=== PATIENT | male | born 1965 | race Caucasian/White ===

== ENCOUNTER 2016-12-08 16:33 | Emergency (ER) | payer OTHER, MEDICAID ==
[~2016-12-08] VITALS: Ht 177.8 cm; Wt 75.0 kg
[2016-12-08 17:33] LABS: CLARITY URINE CLEAR (CLEAR); COLOR URINE YELLOW (YELLOW); GLUCOSE URINE NEGATIVE (NEGATIVE); HEMATOCRIT. 38.5 % (42.0-52.0); HEMOGLOBIN. 12.6 g/dL (14.0-18.0); KETONES URINE NEGATIVE (NEGATIVE); LEUKOCYTE ESTERASE URINE NEGATIVE (NEGATIVE); MEAN CORPUSCULAR HEMOGLOBIN 26.2 pg (28.0-32.0); MEAN CORPUSCULAR VOLUME 80.2 fL (80.0-94.0); MEAN PLATELET VOLUME 8.3 fl (7.4-10.4); NITRITE URINE NEGATIVE (NEGATIVE); OCCULT BLOOD URINE NEGATIVE (NEGATIVE); PLATELET 196 x1000/uL (130-400); PROTEIN URINE NEGATIVE (NEGATIVE); RED CELL DISTRIBUTION WIDTH 16.2 % (11.6-14.6); SPECIFIC GRAVITY URINE 1.012 (1.005-1.030); UROBILINOGEN URINE 0.2 E.U./dL (0.2-1.0)
[2016-12-08 17:40] LABS: CARBON DIOXIDE 29 mEq/L (21-32); CHLORIDE 103 mEq/L (98-107)
[2016-12-08 17:42] LABS: INR 1.1; PROTHROMBIN TIME 11.4 sec
[2016-12-08 17:47] LABS: ETHANOL BLOOD < 10 mg/dL; TROPONIN I 0.02 ng/mL (0.00-0.04)
[2016-12-08 17:50] LABS: *AMPHETAMINES SCREEN URINE NEGATIVE (NEGATIVE); *BARBITURATES SCREEN URINE NEGATIVE (NEGATIVE); *BENZODIAZEPINES SCREEN URINE NEGATIVE (NEGATIVE); *COCAINE SCREEN URINE NEGATIVE (NEGATIVE); CANNABINOID URINE SCREEN NEGATIVE (NEGATIVE); METHADONE URINE SCREEN NEGATIVE (NEGATIVE); OPIATES URINE SCREEN NEGATIVE (NEGATIVE); PHENCYCLIDINE URINE SCREEN NEGATIVE (NEGATIVE)
[2016-12-08 17:53] LABS: PLATELET ESTIMATE NORMAL
[2016-12-08] MEDS ORDERED: SODIUM CHLORIDE 0.9% 1,000 ML IV ONE (18:00)
[2016-12-08] MEDS ORDERED: MORPHINE SULFATE 2 MG/ML CPJ (NOT FOR IM USE) IV ONE (18:00)
[2016-12-08] MEDS ORDERED: QUETIAPINE FUMARATE 100MG TABLET PO NR (23:00)
[2016-12-09 07:30] VITALS: BP 139/55
== END 2016-12-09 07:39 | disposition short-term general hospital (02) ==
LOC: ER 16:47
DX: R55 Syncope and collapse (principal); M94.0 Chondrocostal junction syndrome [Tietze]; F20.9 Schizophrenia, unspecified; M54.5 Low back pain; W07.XXXA Fall from chair, initial encounter; Y93.89 Activity, other specified; Y92.89 Other specified places as the place of occurrence of the external cause; R74.8 Abnormal levels of other serum enzymes; E88.09 Other disorders of plasma-protein metabolism, not elsewhere classified; E86.0 Dehydration; E83.51 Hypocalcemia; D72.819 Decreased white blood cell count, unspecified; K85.90 Acute pancreatitis without necrosis or infection, unspecified; F14.10 Cocaine abuse, uncomplicated; I10 Essential (primary) hypertension; I25.10 Atherosclerotic heart disease of native coronary artery without angina pectoris; F31.9 Bipolar disorder, unspecified; M85.80 Other specified disorders of bone density and structure, unspecified site; E11.9 Type 2 diabetes mellitus without complications; G40.909 Epilepsy, unspecified, not intractable, without status epilepticus
CPT/HCPCS: 36415; 71010; 72070; 72100; 80053; 80305; 81003; 83880; 84484; 85025; 85610; 93005; 96361; 96374; 99285; G0482; J2270; J7030; Z7610

== ENCOUNTER 2018-05-30 14:44 | Emergency (ER) | payer MEDICAID, OTHER ==
[~2018-05-30] VITALS: Ht 172.7 cm; Wt 78.0 kg
[2018-05-30 14:51] VITALS: BP 128/82
== END 2018-05-30 16:00 | disposition left against medical advice (07) ==
LOC: ER 14:55
DX: R68.89 Other general symptoms and signs (principal); Z53.21 Procedure and treatment not carried out due to patient leaving prior to being seen by health care provider

== ENCOUNTER 2018-11-08 18:11 | Inpatient (IN) | payer MEDICAID, OTHER ==
[~2018-11-08] VITALS: Ht 172.7 cm; Wt 63.7 kg
[2018-11-08] MEDS ORDERED: ONDANSETRON HCL 4MG/2ML INJ IV STA (18:36)
[2018-11-08] MEDS ORDERED: SODIUM CHLORIDE 0.9% 1,000 ML IV ONE (18:36)
[2018-11-08] MEDS ORDERED: LORAZEPAM 2MG/ML CPJ IV ONE (18:45)
[2018-11-08 19:10] LABS: BASOPHILS % 0.1 % (0.0-2.0); EOSINOPHILS % 3.4 % (0.0-5.0); HEMATOCRIT. 42.5 % (42.0-52.0); HEMOGLOBIN. 13.8 g/dL (14.0-18.0); LYMPHOCYTES % 10.8 % (20.0-50.0); MEAN CORPUSCULAR HEMOGLOBIN 27.2 pg (28.0-32.0); MEAN CORPUSCULAR VOLUME 83.8 fL (80.0-94.0); MONOCYTES % 13.3 % (2.0-8.0); NEUTROPHILS % 72.4 % (40.0-76.0); PLATELET 219 x1000/uL (130-400); RED BLOOD CELL COUNT 5.07 mill/uL (4.7-6.1)
[2018-11-08 19:14] LABS: CHLORIDE 105 mEq/L (98-107)
[2018-11-08 19:20] LABS: ETHANOL BLOOD < 10 mg/dL
[2018-11-08] MEDS ORDERED: ASPIRIN 325MG TABLET PO ONE (20:15)
[2018-11-08 20:39] LABS: CREATINE KINASE MB FRACTION 9.3 ng/mL (0.5-3.6)
[2018-11-08 21:22] LABS: *AMPHETAMINES SCREEN URINE PRESUMTIVE POSITIVE (NEGATIVE); *BARBITURATES SCREEN URINE NEGATIVE (NEGATIVE)
[2018-11-08 21:23] LABS: *BENZODIAZEPINES SCREEN URINE NEGATIVE (NEGATIVE); *COCAINE SCREEN URINE NEGATIVE (NEGATIVE); METHADONE URINE SCREEN NEGATIVE (NEGATIVE); OPIATES URINE SCREEN NEGATIVE (NEGATIVE); PHENCYCLIDINE URINE SCREEN NEGATIVE (NEGATIVE)
[2018-11-08 21:25] LABS: CANNABINOID URINE SCREEN NEGATIVE (NEGATIVE)
[2018-11-08 23:45] VITALS: BP 115/82
[2018-11-09] VITALS: BP 115/82
[2018-11-09] MEDS ORDERED: BUSP10TA3 PO (00:12)
[2018-11-09] MEDS ORDERED: QUET300T2 PO (00:12)
[2018-11-09] MEDS ORDERED: ATOR40TA70 PO (00:12)
[2018-11-09] MEDS ORDERED: BUPR100T13 PO (00:13)
[2018-11-09] MEDS ORDERED: DEXTROSE 50% WATER 50ML SYRINGE IV PRN (01:15)
[2018-11-09] MEDS ORDERED: CLONIDINE 0.1MG TABLET PO PRN (01:15)
[2018-11-09] MEDS ORDERED: ONDANSETRON HCL 4MG/2ML INJ IV PRN (01:15)
[2018-11-09] MEDS: HYDROCODONE/ACETAMINOPHEN 5/325MG TABLET PO PRN ×3 (01:43→17:06)
[2018-11-09 04:00] VITALS: BP 108/69
[2018-11-09] MEDS: INSULIN LISPRO 100 UNITS/ML SUBCUT SCH ×4 (06:10→21:00)
[2018-11-09] MEDS: BLOOD SUGAR DIAGNOSTIC STRIP TEST SCH ×4 (06:10→21:04)
[2018-11-09 06:49] LABS: HEMATOCRIT. 36.9 % (42.0-52.0); HEMOGLOBIN. 12.4 g/dL (14.0-18.0); MEAN CORPUSCULAR HEMOGLOBIN 27.6 pg (28.0-32.0); MEAN CORPUSCULAR VOLUME 82.2 fL (80.0-94.0); MEAN PLATELET VOLUME 8.4 fl (7.4-10.4); PLATELET 216 x1000/uL (130-400); RED BLOOD CELL COUNT 4.49 mill/uL (4.7-6.1); RED CELL DISTRIBUTION WIDTH 15.5 % (11.6-14.6)
[2018-11-09 08:00] VITALS: BP 132/72
[2018-11-09] MEDS ORDERED: PNEUMOCOCCAL 23-VAL P-SAC VAC 0.5 ML IM ONE (08:00)
[2018-11-09] MEDS: ENOXAPARIN 40MG/0.4ML SYR SUBCUT SCH (09:31)
[2018-11-09 10:17] LABS: CHLORIDE 103 mEq/L (98-107)
[2018-11-09 10:23] LABS: LDL CHOLESTEROL 82 mg/dL (5-100)
[2018-11-09 10:25] LABS: CREATINE KINASE 284 IU/L (39-308); HDL CHOLESTEROL 66 mg/dL (40-59)
[2018-11-09 10:27] LABS: CREATINE KINASE MB FRACTION 5.7 ng/mL (0.5-3.6)
[2018-11-09 12:11] VITALS: BP 106/69
[2018-11-09 14:00] LABS: CREATINE KINASE MB FRACTION 5.1 ng/mL (0.5-3.6)
[2018-11-09 14:18] LABS: PLATELET ESTIMATE NORMAL
[2018-11-09] MEDS: BUPROPION HCL 100MG SR TABLET PO SCH ×2 (14:31→21:04)
[2018-11-09 15:21] LABS: HEPATITIS B SURFACE ANTIGEN NEGATIVE
[2018-11-09 15:51] LABS: HEPATITIS A AB IGM NEGATIVE (NEGATIVE)
[2018-11-09 16:00] VITALS: BP 126/85
[2018-11-09 20:00] VITALS: BP 131/88
[2018-11-09] MEDS: BUSPIRONE HCL 5MG TABLET PO SCH (21:04)
[2018-11-09] MEDS: ATORVASTATIN CALCIUM 40MG TABLET PO SCH (21:04)
[2018-11-09] MEDS: QUETIAPINE FUMARATE 100MG TABLET PO SCH (21:04)
[2018-11-10] VITALS: BP 108/66
[2018-11-10] MEDS: HYDROCODONE/ACETAMINOPHEN 5/325MG TABLET PO PRN ×3 (01:22→16:29)
[2018-11-10 04:00] VITALS: BP 120/79
[2018-11-10] MEDS: INSULIN LISPRO 100 UNITS/ML SUBCUT SCH ×4 (05:50→20:45)
[2018-11-10] MEDS: BLOOD SUGAR DIAGNOSTIC STRIP TEST SCH ×4 (05:50→20:45)
[2018-11-10 06:25] LABS: HEMATOCRIT. 37.9 % (42.0-52.0); HEMOGLOBIN. 12.7 g/dL (14.0-18.0); MEAN CORPUSCULAR HEMOGLOBIN 27.6 pg (28.0-32.0); MEAN CORPUSCULAR VOLUME 82.2 fL (80.0-94.0); MEAN PLATELET VOLUME 8.4 fl (7.4-10.4); PLATELET 216 x1000/uL (130-400); RED BLOOD CELL COUNT 4.61 mill/uL (4.7-6.1); RED CELL DISTRIBUTION WIDTH 15.4 % (11.6-14.6)
[2018-11-10 06:35] LABS: CHLORIDE 106 mEq/L (98-107)
[2018-11-10 08:00] VITALS: BP 150/92
[2018-11-10] MEDS: BUPROPION HCL 100MG SR TABLET PO SCH ×2 (09:02→20:44)
[2018-11-10] MEDS: ENOXAPARIN 40MG/0.4ML SYR SUBCUT SCH (09:02)
[2018-11-10] MEDS: BUSPIRONE HCL 5MG TABLET PO SCH ×2 (09:04→20:44)
[2018-11-10] MEDS: AMLODIPINE 5MG TABLET PO SCH (11:06)
[2018-11-10] MEDS: ASPIRIN 81MG EC TABLET PO SCH (11:06)
[2018-11-10 12:00] VITALS: BP 127/83
[2018-11-10 16:18] VITALS: BP 148/95
[2018-11-10 16:52] LABS: PLATELET ESTIMATE NORMAL
[2018-11-10 20:00] VITALS: BP 136/98
[2018-11-10] MEDS: ATORVASTATIN CALCIUM 40MG TABLET PO SCH (20:44)
[2018-11-10] MEDS: QUETIAPINE FUMARATE 100MG TABLET PO SCH (20:45)
[2018-11-11] VITALS: BP 125/80
[2018-11-11] MEDS: HYDROCODONE/ACETAMINOPHEN 5/325MG TABLET PO PRN ×4 (00:36→22:00)
[2018-11-11 04:00] VITALS: BP 121/77
[2018-11-11 04:14] LABS: HIV SCREEN 4G Non Reactive (Non Reactive)
[2018-11-11] MEDS: BLOOD SUGAR DIAGNOSTIC STRIP TEST SCH ×4 (05:50→21:18)
[2018-11-11 06:52] LABS: HEMATOCRIT. 41.4 % (42.0-52.0); HEMOGLOBIN. 13.6 g/dL (14.0-18.0); MEAN CORPUSCULAR HEMOGLOBIN 27.2 pg (28.0-32.0); MEAN CORPUSCULAR VOLUME 83.1 fL (80.0-94.0); MEAN PLATELET VOLUME 7.9 fl (7.4-10.4); PLATELET 224 x1000/uL (130-400); RED BLOOD CELL COUNT 4.99 mill/uL (4.7-6.1); RED CELL DISTRIBUTION WIDTH 15.2 % (11.6-14.6)
[2018-11-11] MEDS: INSULIN LISPRO 100 UNITS/ML SUBCUT SCH ×4 (07:15→21:00)
[2018-11-11 07:33] LABS: CHLORIDE 105 mEq/L (98-107)
[2018-11-11] MEDS: ENOXAPARIN 40MG/0.4ML SYR SUBCUT SCH (08:04)
[2018-11-11] MEDS: ASPIRIN 81MG EC TABLET PO SCH (08:05)
[2018-11-11] MEDS: BUPROPION HCL 100MG SR TABLET PO SCH ×2 (08:05→21:05)
[2018-11-11] MEDS: BUSPIRONE HCL 5MG TABLET PO SCH ×2 (08:05→21:05)
[2018-11-11] MEDS: AMLODIPINE 5MG TABLET PO SCH (08:13)
[2018-11-11 08:17] VITALS: BP 126/85
[2018-11-11 12:00] VITALS: BP 142/94
[2018-11-11 15:30] LABS: PLATELET ESTIMATE NORMAL
[2018-11-11 16:00] VITALS: BP 134/92
[2018-11-11 20:00] VITALS: BP 146/95
[2018-11-11] MEDS: QUETIAPINE FUMARATE 100MG TABLET PO SCH (21:04)
[2018-11-11] MEDS: ATORVASTATIN CALCIUM 40MG TABLET PO SCH (21:05)
[2018-11-12] VITALS: BP 103/67
[2018-11-12 04:00] VITALS: BP 115/74
[2018-11-12] MEDS: HYDROCODONE/ACETAMINOPHEN 5/325MG TABLET PO PRN ×3 (05:34→17:43)
[2018-11-12] MEDS: BLOOD SUGAR DIAGNOSTIC STRIP TEST SCH ×4 (06:45→20:57)
[2018-11-12] MEDS: INSULIN LISPRO 100 UNITS/ML SUBCUT SCH ×4 (07:15→20:57)
[2018-11-12 08:00] VITALS: BP 133/98
[2018-11-12] MEDS: ENOXAPARIN 40MG/0.4ML SYR SUBCUT SCH (10:06)
[2018-11-12] MEDS: AMLODIPINE 5MG TABLET PO SCH (10:06)
[2018-11-12] MEDS: ASPIRIN 81MG EC TABLET PO SCH (10:06)
[2018-11-12] MEDS: BUPROPION HCL 100MG SR TABLET PO SCH ×2 (10:06→20:56)
[2018-11-12] MEDS: BUSPIRONE HCL 5MG TABLET PO SCH ×2 (10:06→20:56)
[2018-11-12 12:00] VITALS: BP 143/92
[2018-11-12 16:54] VITALS: BP 144/89
[2018-11-12 20:00] VITALS: BP 138/91
[2018-11-12] MEDS ORDERED: QUETIAPINE FUMARATE 50MG TABLET PO SCH ×2 (20:46→21:00)
[2018-11-12] MEDS: ATORVASTATIN CALCIUM 40MG TABLET PO SCH (20:56)
[2018-11-13] MEDS: HYDROCODONE/ACETAMINOPHEN 5/325MG TABLET PO PRN ×3 (02:16→16:59)
[2018-11-13 04:00] VITALS: BP 121/85
[2018-11-13] MEDS: BLOOD SUGAR DIAGNOSTIC STRIP TEST SCH ×4 (07:39→20:27)
[2018-11-13] MEDS: INSULIN LISPRO 100 UNITS/ML SUBCUT SCH ×4 (07:50→20:27)
[2018-11-13 08:00] VITALS: BP 128/91
[2018-11-13] MEDS: BUSPIRONE HCL 5MG TABLET PO SCH ×2 (08:45→20:20)
[2018-11-13] MEDS: ASPIRIN 81MG EC TABLET PO SCH (08:45)
[2018-11-13] MEDS: BUPROPION HCL 100MG SR TABLET PO SCH ×2 (08:45→20:21)
[2018-11-13] MEDS: AMLODIPINE 5MG TABLET PO SCH (08:45)
[2018-11-13] MEDS: ENOXAPARIN 40MG/0.4ML SYR SUBCUT SCH (08:46)
[2018-11-13 11:52] VITALS: BP 139/90
[2018-11-13 20:00] VITALS: BP 143/84
[2018-11-13] MEDS: ATORVASTATIN CALCIUM 40MG TABLET PO SCH (20:21)
[2018-11-13] MEDS: QUETIAPINE FUMARATE 100MG TABLET PO SCH (21:50)
[2018-11-14] VITALS: BP 121/67
[2018-11-14 04:00] VITALS: BP 135/86
[2018-11-14] MEDS ORDERED: HALOPERIDOL LACTATE 5MG/ML VIAL IM PRN (06:30)
[2018-11-14] MEDS: HYDROCODONE/ACETAMINOPHEN 5/325MG TABLET PO PRN ×3 (06:41→20:52)
[2018-11-14] MEDS: BLOOD SUGAR DIAGNOSTIC STRIP TEST SCH ×4 (06:49→20:26)
[2018-11-14] MEDS: INSULIN LISPRO 100 UNITS/ML SUBCUT SCH ×4 (07:50→20:31)
[2018-11-14 08:00] VITALS: BP 135/112
[2018-11-14] MEDS: BUSPIRONE HCL 5MG TABLET PO SCH ×2 (08:26→20:29)
[2018-11-14] MEDS: AMLODIPINE 5MG TABLET PO SCH (08:26)
[2018-11-14] MEDS: ASPIRIN 81MG EC TABLET PO SCH (08:26)
[2018-11-14] MEDS: BUPROPION HCL 100MG SR TABLET PO SCH ×2 (08:26→20:28)
[2018-11-14] MEDS: ENOXAPARIN 40MG/0.4ML SYR SUBCUT SCH (08:26)
[2018-11-14] MEDS ORDERED: LORAZEPAM 2MG/ML CPJ IV NR (08:45)
[2018-11-14] MEDS ORDERED: LORAZEPAM 2MG/ML CPJ IM NR (09:15)
[2018-11-14] MEDS: DIPHENHYDRAMINE 50MG/ML VIAL IM PRN ×2 (10:45→22:02)
[2018-11-14 11:59] VITALS: BP 147/95
[2018-11-14 16:00] VITALS: BP 132/87
[2018-11-14 16:39] LABS: BASOPHILS % 0.5 % (0.0-2.0); EOSINOPHILS % 2.2 % (0.0-5.0); HEMATOCRIT. 42.9 % (42.0-52.0); HEMOGLOBIN. 13.9 g/dL (14.0-18.0); LYMPHOCYTES % 22.2 % (20.0-50.0); MEAN CORPUSCULAR HEMOGLOBIN 27.3 pg (28.0-32.0); MEAN CORPUSCULAR VOLUME 84.1 fL (80.0-94.0); MEAN PLATELET VOLUME 8.6 fl (7.4-10.4); MONOCYTES % 13.6 % (2.0-8.0); NEUTROPHILS % 61.5 % (40.0-76.0); PLATELET 274 x1000/uL (130-400); RED CELL DISTRIBUTION WIDTH 15.4 % (11.6-14.6)
[2018-11-14 16:44] LABS: CHLORIDE 106 mEq/L (98-107)
[2018-11-14 20:00] VITALS: BP 129/83
[2018-11-14] MEDS: QUETIAPINE FUMARATE 100MG TABLET PO SCH (20:28)
[2018-11-14] MEDS: ATORVASTATIN CALCIUM 40MG TABLET PO SCH (20:28)
[2018-11-15] VITALS: BP 127/81
[2018-11-15] MEDS: HYDROCODONE/ACETAMINOPHEN 5/325MG TABLET PO PRN ×4 (02:52→22:27)
[2018-11-15 04:00] VITALS: BP 133/84
[2018-11-15] MEDS: BLOOD SUGAR DIAGNOSTIC STRIP TEST SCH ×4 (07:20→21:40)
[2018-11-15 07:23] LABS: HEMATOCRIT. 42.3 % (42.0-52.0); HEMOGLOBIN. 13.8 g/dL (14.0-18.0); MEAN CORPUSCULAR HEMOGLOBIN 27.2 pg (28.0-32.0); MEAN CORPUSCULAR VOLUME 83.5 fL (80.0-94.0); MEAN PLATELET VOLUME 8.4 fl (7.4-10.4); PLATELET 273 x1000/uL (130-400); RED BLOOD CELL COUNT 5.07 mill/uL (4.7-6.1); RED CELL DISTRIBUTION WIDTH 15.5 % (11.6-14.6)
[2018-11-15 07:39] LABS: CHLORIDE 104 mEq/L (98-107)
[2018-11-15] MEDS: INSULIN LISPRO 100 UNITS/ML SUBCUT SCH ×4 (07:50→21:00)
[2018-11-15 08:00] VITALS: BP 124/79
[2018-11-15] MEDS: AMLODIPINE 5MG TABLET PO SCH (08:31)
[2018-11-15] MEDS: BUPROPION HCL 100MG SR TABLET PO SCH ×2 (08:31→21:44)
[2018-11-15] MEDS: ASPIRIN 81MG EC TABLET PO SCH (08:31)
[2018-11-15] MEDS: ENOXAPARIN 40MG/0.4ML SYR SUBCUT SCH (08:33)
[2018-11-15] MEDS ORDERED: LORAZEPAM 0.5MG TABLET PO NR (10:30)
[2018-11-15 12:00] VITALS: BP 126/69
[2018-11-15 14:09] LABS: PLATELET ESTIMATE NORMAL
[2018-11-15 15:59] VITALS: BP 122/79
[2018-11-15 20:00] VITALS: BP 120/86
[2018-11-15] MEDS: ATORVASTATIN CALCIUM 40MG TABLET PO SCH (21:44)
[2018-11-15] MEDS: BUSPIRONE HCL 10MG TABLET PO SCH (21:44)
[2018-11-15] MEDS: QUETIAPINE FUMARATE 100MG TABLET PO SCH (21:44)
[2018-11-16 04:00] VITALS: BP 135/80
[2018-11-16] MEDS: DIPHENHYDRAMINE 50MG/ML VIAL IM PRN ×2 (05:38→16:16)
[2018-11-16] MEDS: BLOOD SUGAR DIAGNOSTIC STRIP TEST SCH ×4 (06:20→21:29)
[2018-11-16] MEDS: HYDROCODONE/ACETAMINOPHEN 5/325MG TABLET PO PRN ×3 (06:20→21:28)
[2018-11-16] MEDS: INSULIN LISPRO 100 UNITS/ML SUBCUT SCH ×4 (07:50→21:00)
[2018-11-16 08:00] VITALS: BP 138/88
[2018-11-16] MEDS: BUPROPION HCL 100MG SR TABLET PO SCH ×2 (09:31→21:29)
[2018-11-16] MEDS: ENOXAPARIN 40MG/0.4ML SYR SUBCUT SCH (09:31)
[2018-11-16] MEDS: AMLODIPINE 5MG TABLET PO SCH (09:31)
[2018-11-16] MEDS: ASPIRIN 81MG EC TABLET PO SCH (09:31)
[2018-11-16] MEDS: BUSPIRONE HCL 10MG TABLET PO SCH ×2 (09:31→21:29)
[2018-11-16 12:00] VITALS: BP 131/67
[2018-11-16] MEDS ORDERED: LORAZEPAM 0.5MG TABLET PO NR (12:30)
[2018-11-16 16:00] VITALS: BP 126/63
[2018-11-16 20:00] VITALS: BP 142/95
[2018-11-16] MEDS: QUETIAPINE FUMARATE 100MG TABLET PO SCH (21:29)
[2018-11-16] MEDS: ATORVASTATIN CALCIUM 40MG TABLET PO SCH (21:29)
[2018-11-17] VITALS: BP 122/66
[2018-11-17] MEDS: HYDROCODONE/ACETAMINOPHEN 5/325MG TABLET PO PRN ×3 (05:43→12:07)
[2018-11-17] MEDS: DIPHENHYDRAMINE 50MG/ML VIAL IM PRN ×2 (07:07→15:27)
[2018-11-17] MEDS: BLOOD SUGAR DIAGNOSTIC STRIP TEST SCH ×2 (07:20→12:20)
[2018-11-17] MEDS: INSULIN LISPRO 100 UNITS/ML SUBCUT SCH ×2 (07:50→12:50)
[2018-11-17 07:58] VITALS: BP 146/89
[2018-11-17] MEDS: ENOXAPARIN 40MG/0.4ML SYR SUBCUT SCH (08:39)
[2018-11-17] MEDS: BUSPIRONE HCL 10MG TABLET PO SCH (08:39)
[2018-11-17] MEDS: AMLODIPINE 5MG TABLET PO SCH (08:39)
[2018-11-17] MEDS: BUPROPION HCL 100MG SR TABLET PO SCH (08:39)
[2018-11-17] MEDS: ASPIRIN 81MG EC TABLET PO SCH (08:39)
[2018-11-17] MEDS ORDERED: LORAZEPAM 0.5MG TABLET PO PRN (10:15)
[2018-11-17] MEDS: LORAZEPAM 0.5MG TABLET PO PRN ×2 (10:22→17:12)
[2018-11-17 11:38] VITALS: BP 167/113
[2018-11-17 15:14] VITALS: BP 190/79
[2018-11-17 17:08] VITALS: BP 142/77
== END 2018-11-17 17:37 | disposition home or self-care (01) | DRG 249 ==
LOC: ER 18:11 → ENRESERV 22:04 → 5WST 23:31 → 6EST 11-12 16:40
PROVIDERS: ADMIT Internal Medicine; ATTEND Internal Medicine
DX: K52.9 Noninfective gastroenteritis and colitis, unspecified (principal); I11.0 Hypertensive heart disease with heart failure; I50.32 Chronic diastolic (congestive) heart failure; F20.9 Schizophrenia, unspecified; E11.9 Type 2 diabetes mellitus without complications; I25.10 Atherosclerotic heart disease of native coronary artery without angina pectoris; G40.909 Epilepsy, unspecified, not intractable, without status epilepticus; J44.9 Chronic obstructive pulmonary disease, unspecified; B19.20 Unspecified viral hepatitis C without hepatic coma; F10.10 Alcohol abuse, uncomplicated; F31.9 Bipolar disorder, unspecified; F41.9 Anxiety disorder, unspecified; E78.5 Hyperlipidemia, unspecified; F19.10 Other psychoactive substance abuse, uncomplicated; F17.210 Nicotine dependence, cigarettes, uncomplicated; Z86.73 Personal history of transient ischemic attack (TIA), and cerebral infarction without residual deficits; Z79.82 Long term (current) use of aspirin; Z79.899 Other long term (current) drug therapy; Z90.49 Acquired absence of other specified parts of digestive tract; Z88.0 Allergy status to penicillin
CPT/HCPCS: 36415; 71045; 80048; 80061; 80305; 80320; 82550; 82553; 82962; 83036; 83735; 83880; 84443; 84484; 85379; 86705; 86709; 86803; 87340; 87389; 90732; 93005; 93306; 93970; 96374; 99285; J1200; J1630; J1650; J2060; J2405; J7030; G0480

== ENCOUNTER 2019-05-24 11:01 | Emergency (ER) | payer MEDICAID ==
[~2019-05-24] VITALS: Ht 172.7 cm; Wt 68.0 kg
[~2019-05-24 11:01] MED LIST: ATOR40TA70 PO; BUPR100T13 PO; BUSP10TA3 PO; QUET300T2 PO
[2019-05-24 15:04] LABS: CHLORIDE 108 mEq/L (98-107)
[2019-05-24 15:06] LABS: HEMATOCRIT. 41.3 % (42.0-52.0); HEMOGLOBIN. 13.5 g/dL (14.0-18.0); MEAN CORPUSCULAR HEMOGLOBIN 27.3 pg (28.0-32.0); MEAN CORPUSCULAR VOLUME 83.5 fL (80.0-94.0); MEAN PLATELET VOLUME 8.3 fl (7.4-10.4); PLATELET 228 x1000/uL (130-400); RED BLOOD CELL COUNT 4.95 mill/uL (4.7-6.1); RED CELL DISTRIBUTION WIDTH 13.2 % (11.6-14.6)
[2019-05-24 15:12] LABS: ETHANOL BLOOD < 10 mg/dL
[2019-05-24 16:22] LABS: CLARITY URINE CLEAR (CLEAR); COLOR URINE DARK YELLOW (YELLOW); KETONES URINE 1+ (NEGATIVE); LEUKOCYTE ESTERASE URINE NEGATIVE (NEGATIVE); NITRITE URINE NEGATIVE (NEGATIVE); OCCULT BLOOD URINE NEGATIVE (NEGATIVE); PROTEIN URINE TRACE (NEGATIVE); SPECIFIC GRAVITY URINE 1.038 (1.005-1.030)
[2019-05-24 16:31] LABS: *COCAINE SCREEN URINE PRESUMTIVE POSITIVE (NEGATIVE); METHADONE URINE SCREEN NEGATIVE (NEGATIVE)
[2019-05-24 16:32] LABS: *AMPHETAMINES SCREEN URINE PRESUMTIVE POSITIVE (NEGATIVE); *BARBITURATES SCREEN URINE NEGATIVE (NEGATIVE); *BENZODIAZEPINES SCREEN URINE NEGATIVE (NEGATIVE); CANNABINOID URINE SCREEN NEGATIVE (NEGATIVE); OPIATES URINE SCREEN NEGATIVE (NEGATIVE); PHENCYCLIDINE URINE SCREEN NEGATIVE (NEGATIVE)
[2019-05-24 17:41] LABS: PLATELET ESTIMATE NORMAL
[2019-05-24] MEDS ORDERED: LORAZEPAM 1MG TABLET PO ONE (20:15)
[2019-05-24] MEDS ORDERED: QUETIAPINE FUMARATE 50MG TABLET PO SCH (20:15)
[2019-05-25] MEDS ORDERED: LORAZEPAM 1MG TABLET PO ONE (16:30)
[2019-05-26 04:00] VITALS: BP 115/81
== END 2019-05-26 05:48 ==
LOC: ER 11:19
DX: R44.0 Auditory hallucinations (principal); R45.851 Suicidal ideations; E11.9 Type 2 diabetes mellitus without complications; I10 Essential (primary) hypertension; I25.10 Atherosclerotic heart disease of native coronary artery without angina pectoris; F19.10 Other psychoactive substance abuse, uncomplicated; Z88.0 Allergy status to penicillin; Z79.899 Other long term (current) drug therapy
CPT/HCPCS: 36415; 80053; 80305; 80320; 81003; 82962; 85025; 99285; Z7610; 99284; G0480

== ENCOUNTER 2023-05-08 07:03 | Emergency (ER) | payer MEDICAID, OTHER ==
[~2023-05-08] VITALS: Ht 167.6 cm; Wt 71.0 kg
[2023-05-08 07:14] VITALS: O2SAT 99
[2023-05-08 09:18] LABS: BASOPHILS % 0.3 % (0.0-2.0); HEMATOCRIT. 39.7 % (42.0-52.0); HEMOGLOBIN. 12.6 g/dL (14.0-18.0); LYMPHOCYTES % 15.1 % (20.0-50.0); MEAN CORPUSCULAR HEMOGLOBIN 25.7 pg (28.0-32.0); MEAN CORPUSCULAR HGB CONC 31.8 g/dL (31.0-37.0); MEAN PLATELET VOLUME 8.1 fl (7.4-10.4); MONOCYTES % 10.3 % (2.0-8.0); NEUTROPHILS % 73.3 % (40.0-76.0); PLATELET 274 x1000/uL (130-400); RED CELL DISTRIBUTION WIDTH 17.6 % (11.6-14.6); WHITE BLOOD COUNT 8.7 x1000/uL (4.5-11.0)
[2023-05-08] MEDS: QUETIAPINE FUMARATE 50MG TABLET PO SCH ×2 (10:00→21:00)
[2023-05-08 10:28] LABS: ALBUMIN 3.8 g/dL (3.2-4.8); CALCIUM 8.7 mg/dL (8.7-10.4); CARBON DIOXIDE 24 mEq/L (21-32); CHLORIDE 101 mEq/L (98-107); CREATININE 0.7 mg/dL (0.6-1.3); GLUCOSE 76 mg/dL (70-105); POTASSIUM 3.3 mEq/L (3.5-5.1); PROTEIN TOTAL 7.4 g/dL (6.0-8.3); SODIUM 135 mEq/L (136-145); UREA NITROGEN BLOOD 18 mg/dL (9-23)
[2023-05-08 10:29] LABS: ACETAMINOPHEN < 2 ug/mL (10-30); ALANINE AMINOTRANSFERASE 21 IU/L (10-49); ASPARTATE AMINOTRANSFERASE 40 IU/L (<34); BILIRUBIN TOTAL 0.5 mg/dL (0.1-1.0)
[2023-05-08 10:31] LABS: ETHANOL BLOOD < 10 mg/dL (<10)
[2023-05-08] MEDS ORDERED: POTASSIUM CHLORIDE 20MEQ TABLET SR PO ONE (12:45)
[2023-05-08] MEDS ORDERED: POTASSIUM CHLORIDE 20MEQ TABLET SR PO NR (16:15)
[2023-05-08 16:39] LABS: CLARITY URINE CLEAR (CLEAR); COLOR URINE YELLOW (YELLOW); GLUCOSE URINE NEGATIVE (NEGATIVE); KETONES URINE 3+ (NEGATIVE); LEUKOCYTE ESTERASE URINE NEGATIVE (NEGATIVE); NITRITE URINE NEGATIVE (NEGATIVE); OCCULT BLOOD URINE NEGATIVE (NEGATIVE); PROTEIN URINE NEGATIVE (NEGATIVE); SPECIFIC GRAVITY URINE 1.018 (1.005-1.030); UROBILINOGEN URINE 0.2 E.U./dL (0.2-1.0)
[2023-05-08 17:03] LABS: *AMPHETAMINES SCREEN URINE PRESUMPTIVE POSITIVE (NEGATIVE); *BARBITURATES SCREEN URINE NEGATIVE (NEGATIVE); *BENZODIAZEPINES SCREEN URINE NEGATIVE (NEGATIVE); *COCAINE SCREEN URINE PRESUMPTIVE POSITIVE (NEGATIVE); CANNABINOID URINE SCREEN NEGATIVE (NEGATIVE); ECSTASY MDMA SCREEN URINE CONF.TEST INDICATED (NEGATIVE); METHADONE URINE SCREEN Neg (NEGATIVE); OPIATES URINE SCREEN NEGATIVE (NEGATIVE); PHENCYCLIDINE URINE SCREEN NEGATIVE (NEGATIVE)
[2023-05-09] MEDS: QUETIAPINE FUMARATE 50MG TABLET PO SCH (09:00)
[2023-05-09 12:00] VITALS: BP 121/78; PULSE 85; RESP 16; TEMP 98.4
== END 2023-05-09 13:05 ==
LOC: ER 07:03
DX: R45.851 Suicidal ideations (principal); E11.9 Type 2 diabetes mellitus without complications; I10 Essential (primary) hypertension; Z88.0 Allergy status to penicillin; Z86.59 Personal history of other mental and behavioral disorders; Z20.822 Contact with and (suspected) exposure to COVID-19
CPT/HCPCS: 80053; 80305; 81003; 80307; 80329; 80320; 85025; 36415; 99285; 87426; Z7610 ×2; C9803; G0480